=== PATIENT | female | born 1965 | race African-American/Black ===

== ENCOUNTER 2017-06-29 13:55 | Inpatient (IN) | payer SELFPAY ==
[~2017-06-29] VITALS: Ht 172.7 cm; Wt 94.0 kg
[~2017-06-29 13:55] MED LIST: LISI1TAB3 PO; NAPR-695 PO
[2017-06-29] MEDS ORDERED: ADENOSINE 6 MG/2 ML VIAL. IV ONE (14:02)
[2017-06-29] MEDS ORDERED: dilTIAZem IV PUSH 25 MG/5 ML VIAL ONE (14:02)
--- NOTE | 2017-06-29 14:07 | PHYS DOC ---
Past Medical History Past Medical History: Hypertension Past Surgical History: , Tubal ligation Alcohol Use: None Drug Use: None Adult General Chief Complaint Chief Complaint: RAPID HEART RATE HPI HPI Patient is a 51 year old female who presents with not feeling well. She states she felt a little short of breath with exertion earlier today no she came to the ER sitting in a chair she felt slightly short of breath. She denies any drug use she denies any fevers chills nausea or vomiting. She states that she started earlier today. She states that she's been diagnosed with high blood pressure and is on blood pressure medicines and took those this morning. Review of Systems Review of Systems Constitutional: Denies fever or chills [] Eyes: Denies change in visual acuity, redness, or eye pain [] HENT: Denies nasal congestion or sore throat [] Respiratory: Denies cough, slight shortness of breath [] Cardiovascular: No additional information not addressed in HPI [] GI: Denies abdominal pain, nausea, vomiting, bloody stools or diarrhea [] : Denies dysuria or hematuria [] Musculoskeletal: Denies back pain or joint pain [] Integument: Denies rash or skin lesions [] Neurologic: Denies headache, focal weakness or sensory changes [] Endocrine: Denies polyuria or polydipsia [] All other systems were reviewed and found to be within normal limits, except as documented in this note. Current Medications Current Medications Current Medications Medications (Trade) Dose Ordered Sig/Jesus Start Time Stop Time Status Last Admin Dose Admin Adenosine (Adenocard) 6 mg STK-MED ONCE 06/29/17 14:02 06/29/17 14:03 DC Diltiazem HCl (Cardizem) 10 mg 1X ONCE 06/29/17 14:15 06/29/17 14:16 DC Diltiazem HCl 125 mg/Dextrose 125 ml @ 10 mls/hr 1X ONCE 06/29/17 14:15 06/30/17 02:44 Metoprolol Tartrate (Lopressor Vial) 5 mg 1X ONCE 06/29/17 17:00 06/29/17 17:01 Sodium Chloride 1,000 ml @ 1,000 mls/hr 1X ONCE 06/29/17 15:30 06/29/17 16:29 DC 06/29/17 15:47 1,000 MLS/HR Allergies Allergies Allergies Coded Allergies Type Severity Reaction Last Updated Verified No Known Drug Allergies 04/21/16 No Physical Exam Physical Exam Constitutional: Well developed, well nourished, no acute distress, non-toxic appearance. [] HENT: Normocephalic, atraumatic, bilateral external ears normal, oropharynx moist, no oral exudates, nose normal. [] Eyes: PERRLA, EOMI, conjunctiva normal, no discharge. [] Neck: Normal range of motion, no tenderness, supple, no stridor. [] Cardiovascular:Heart rate regular rhythm with tachycardia, no murmur [] Lungs & Thorax: Bilateral breath sounds clear to auscultation [] Abdomen: Bowel sounds normal, soft, no tenderness, no masses, no pulsatile masses. [] Skin: Warm, dry, no erythema, no rash. [] Back: No tenderness, no CVA tenderness. [] Extremities: No tenderness, no cyanosis, no clubbing, ROM intact, no edema. [] Neurologic: Alert and oriented X 3, normal motor function, normal sensory function, no focal deficits noted. [] Psychologic: Affect normal, judgement normal, mood normal. [] Current Patient Data Vital Signs Vital Signs Date Time Temp Pulse Resp B/P (MAP) Pulse Ox O2 Delivery O2 Flow Rate FiO2 06/29/17 15:48 122 18 169/85 (113) 99 Room Air 06/29/17 14:21 2.0 06/29/17 13:56 98.1 98.1 Lab Values Laboratory Tests Test 06/29/17 14:15 06/29/17 14:25 White Blood Count 6.0 x10^3/uL (4.0-11.0) Red Blood Count 4.60 x10^6/uL (3.50-5.40) Hemoglobin 13.2 g/dL (12.0-15.5) Hematocrit 40.3 % (36.0-47.0) Mean Corpuscular Volume 88 fL (79-100) Mean Corpuscular Hemoglobin 29 pg (25-35) Mean Corpuscular Hemoglobin Concent 33 g/dL (31-37) Red Cell Distribution Width 14.0 % (11.5-14.5) Platelet Count 224 x10^3/uL (140-400) Neutrophils (%) (Auto) 65 % (31-73) Lymphocytes (%) (Auto) 29 % (24-48) Monocytes (%) (Auto) 6 % (0-9) Eosinophils (%) (Auto) 0 % (0-3) Basophils (%) (Auto) 0 % (0-3) Neutrophils # (Auto) 3.9 x10^3uL (1.8-7.7) Lymphocytes # (Auto) 1.7 x10^3/uL (1.0-4.8) Monocytes # (Auto) 0.4 x10^3/uL (0.0-1.1) Eosinophils # (Auto) 0.0 x10^3/uL (0.0-0.7) Basophils # (Auto) 0.0 x10^3/uL (0.0-0.2) Prothrombin Time 14.1 SEC (11.7-14.0) H Prothrombin Time INR 1.2 (0.8-1.1) H D-Dimer (Nandini) 0.39 ug/mlFEU (0.00-0.50) Sodium Level 138 mmol/L (136-145) Potassium Level 3.1 mmol/L (3.5-5.1) L Chloride Level 99 mmol/L (98-107) Carbon Dioxide Level 24 mmol/L (21-32) Anion Gap 15 (6-14) H Blood Urea Nitrogen 13 mg/dL (7-20) Creatinine 1.1 mg/dL (0.6-1.0) H Estimated GFR (Cockcroft-Gault) 63.6 Glucose Level 130 mg/dL (70-99) H Calcium Level 10.6 mg/dL (8.5-10.1) H Magnesium Level 1.5 mg/dL (1.8-2.4) L Total Bilirubin 0.6 mg/dL (0.2-1.0) Direct Bilirubin 0.1 mg/dL (0.0-0.2) Aspartate Amino Transferase (AST) 28 U/L (15-37) Alanine Aminotransferase (ALT) 28 U/L (14-59) Alkaline Phosphatase 118 U/L (46-116) H Creatine Kinase 250 U/L (26-192) H Creatine Kinase MB (Mass) 0.9 ng/mL (0.0-3.6) Creatine Kinase MB Relative Index 0.4 % (0-4) Troponin I Quantitative 0.022 ng/mL (0.000-0.055) HK-Aoq-F-Type Natriuretic Peptide 71 pg/mL (0-124) Total Protein 8.9 g/dL (6.4-8.2) H Albumin 4.2 g/dL (3.4-5.0) Lipase 124 U/L (73-393) Thyroid Stimulating Hormone (TSH) 0.595 uIU/mL (0.358-3.74) Urine Collection Type Unknown Urine Color Yellow Urine Clarity Clear Urine pH 6.5 Urine Specific [place] 1.015 Urine Protein Negative mg/dL (NEG-TRACE) Urine Glucose (UA) Negative mg/dL (NEG) Urine Ketones (Stick) Negative mg/dL (NEG) Urine Blood Negative (NEG) Urine Nitrite Negative (NEG) Urine Bilirubin Negative (NEG) Urine Urobilinogen Dipstick 1.0 mg/dL (0.2 mg/dL) Urine Leukocyte Esterase Trace (NEG) Urine RBC 0 /HPF (0-2) Urine WBC 1-4 /HPF (0-4) Urine Squamous Epithelial Cells Many /LPF Urine Bacteria Many /HPF (0-FEW) Urine Mucus Slight /LPF Urine Opiates Screen Neg (NEG) Urine Methadone Screen Neg (NEG) Urine Barbiturates Neg (NEG) Urine Phencyclidine Screen Neg (NEG) Urine Amphetamine/Methamphetamine Neg (NEG) Urine Benzodiazepines Screen Neg (NEG) Urine Cocaine Screen Neg (NEG) Urine Cannabinoids Screen Neg (NEG) Urine Ethyl Alcohol N eg (NEG) Laboratory Tests 06/29/17 14:15 Laboratory Tests 06/29/17 14:15 EKG EKG EKG shows sinus tachycardia with a rate of [address] elevations or T-wave inversions, normal axis, QTC 4 and 40 ms, as interpreted by me. Radiology/Procedures Radiology/Procedures [facility] [address] [place], [place] [id number] IMAGING REPORT Signed PATIENT: YULISSA MARIA ACCOUNT: [id number] : 1965 LOCATION: ER AGE: 51 SEX: F EXAM STATUS: REG ER ORD. PHYSICIAN: ANCA SANTIZO MD REASON: tachycardia PROCEDURE: PORTABLE CHEST 1V AP PORTABLE CHEST Clinical Indication: tachycardia. Shortness of air started this afternoon. Comparison: AP chest 02/26/2007. Findings: The cardiomediastinal silhouette is normal. Lungs are clear. There is no pneumothorax. No pleural effusion is appreciated. There is no acute bone abnormality. IMPRESSION: No acute cardiopulmonary process. DICTATED and SIGNED BY: JOSUE AGUILA MD DATE: 06/29/17 1444 CC: ANCA SANTIZO MD; NO PCP ~ Impressions: Tachycardia Hypertension Hypokalemia Course & Med Decision Making Course & Med Decision Making Pertinent Labs and Imaging studies reviewed. (See chart for details) She presented with heart rate 150s initially thought perhaps it was a flutter and diltiazem was ordered but was never given. Her heart rate decreased to the 120s. Her d-dimer is negative. She received IV fluids, 5 mg IV metoprolol be admitted to the hospitalist. Patient's in stable condition at this time. Patient denies any chest pain or shortness of breath. Dragon Disclaimer Dragon Disclaimer This electronic medical record was generated, in whole or in part, using a voice recognition dictation system. Departure Departure Referrals: NO PCP (PCP) ANCA SANTIZO MD Jun 29, 2017 14:07
[2017-06-29] MEDS ORDERED: dilTIAZem IV PUSH 25 MG/5 ML VIAL IVP ONE (14:15)
[2017-06-29 14:24] LABS: BASO % 0 % (0-3); EOS % 0 % (0-3); HEMATOCRIT 40.3 % (36.0-47.0); HEMOGLOBIN 13.2 g/dL (12.0-15.5); LYMPH # 1.7 x10^3/uL (1.0-4.8); LYMPH % 29 % (24-48); MEAN CORPUSCULAR HEMOGLOBIN 29 pg (25-35); MEAN CORPUSCULAR HGB CONC 33 g/dL (31-37); MEAN CORPUSCULAR VOLUME 88 fL (79-100); MONO % 6 % (0-9); NEUT % 65 % (31-73); PLATELET COUNT 224 x10^3/uL (140-400)
[2017-06-29 14:35] LABS: INR 1.2 (0.8-1.1); PROTHROMBIN TIME PATIENT 14.1 SEC (11.7-14.0)
[2017-06-29 14:44] LABS: BILIRUBIN,URINE NEGATIVE (NEG); GLUCOSE,URINE NEGATIVE (NEG); NITRITE,URINE NEGATIVE (NEG); PH,URINE 6.5; PROTEIN,URINE NEGATIVE (NEG-TRACE)
[2017-06-29 14:52] LABS: CKMB MASS 0.9 ng/mL (0.0-3.6)
[2017-06-29 14:53] LABS: BARBITURATES NEG (NEG); BENZODIAZEPINES NEG (NEG); CANNABINOIDS NEG (NEG); COCAINE NEG (NEG); METHADONE NEG (NEG); OPIATES NEG (NEG); PHENCYCLIDINE NEG (NEG)
--- NOTE | 2017-06-29 14:53 | RAD ---
AP PORTABLE CHEST Clinical Indication: tachycardia. Shortness of air started this afternoon. Comparison: AP chest 02/26/2007. Findings: The cardiomediastinal silhouette is normal. Lungs are clear. There is no pneumothorax. No pleural effusion is appreciated. There is no acute bone abnormality. IMPRESSION: No acute cardiopulmonary process.
[2017-06-29 14:55] LABS: BACTERIA,URINE MANY /HPF (0-FEW); RBC,URINE 0 /HPF (0-2); SQUAMOUS EPITHELIAL CELL,UR MANY /LPF
[2017-06-29 15:09] LABS: CALCIUM 10.6 mg/dL (8.5-10.1); CREATININE 1.1 mg/dL (0.6-1.0); GFR 63.6; POTASSIUM 3.1 mmol/L (3.5-5.1)
[2017-06-29 15:16] LABS: ALBUMIN 4.2 g/dL (3.4-5.0); DIRECT BILIRUBIN 0.1 mg/dL (0.0-0.2); MAGNESIUM 1.5 mg/dL (1.8-2.4); TOTAL BILIRUBIN 0.6 mg/dL (0.2-1.0); TOTAL PROTEIN 8.9 g/dL (6.4-8.2)
[2017-06-29] MEDS ORDERED: IV NORMAL SALINE 1000ML BAG 1,000 ML IV ONE (15:30)
[2017-06-29] MEDS ORDERED: METOPROLOL TARTRATE 5 MG/5 ML VIAL. IVP ONE (17:00)
[2017-06-29] MEDS ORDERED: POTASSIUM CHLORIDE 20 MEQ TABLET.ER. PO ONE (17:15)
[2017-06-29 19:09] VITALS: BP 157/94
[2017-06-29 19:13] VITALS: BP 157/94
[2017-06-29] MEDS ORDERED: MAGNESIUM SULFATE 4GM 100 ML IV ONE (19:30)
--- NOTE | 2017-06-29 21:31 | HP ---
ADMIT DATE: 06/29/2017 CHIEF COMPLAINT: Hypertensive urgency. HISTORY OF PRESENT ILLNESS: The patient is a 51-year-old woman who had been admitted about 10 days ago with hypertensive urgency. She had been discharged on lisinopril and hydrochlorothiazide. She had been taking her medications over the past week, but forgot today's pills. When she was carrying a heavy load of laundry today at home, she started not feeling well, had some shortness of breath and decided to come to the Emergency Room. She denies any fevers, chills, any cough, any chest pain or other symptoms. In the Emergency Room, she was found once again with hypertensive urgency and promptly admitted for further workup. She was also found significantly tachycardic, but has responded to beta blockers. PAST MEDICAL HISTORY: Hypertension. PAST SURGICAL HISTORY: She is status post and tubal ligation. FAMILY HISTORY: Hypertension. SOCIAL HISTORY: Does not smoke. No toxic habits. ALLERGIES: No known drug allergies. MEDICATIONS: MAR reconciled with home medications. REVIEW OF SYSTEMS: All symptoms as per HPI have now resolved. She states she feels really rundown and needs some time off. PHYSICAL EXAMINATION: VITAL SIGNS: Show currently a blood pressure of 157/94, heart rate of 88, respiratory rate at 18. She is afebrile. Of note, at time of presentation, blood pressure was 214/95 with a heart rate of 104. GENERAL: This is a well-nourished 51-year-old woman, alert and oriented, in no acute distress. HEENT: Shows no scleral icterus. NECK: Supple, without any JVD. LUNGS: Clear to auscultation bilaterally. HEART: Has regular rate and rhythm. ABDOMEN: Has positive bowel sounds, soft, nontender. EXTREMITIES: Show no edema. SKIN: Warm, soft and dry without any rash. LABORATORY DATA: CBC with a WBC of 6.0, hemoglobin 13.2, platelets of 224. Chemistries with a BUN and creatinine of 13 and 1.1, potassium at 3.1. LFTs within normal. Tox screen is negative. UA with 1-4 wbc's, many bacteria, many squamous. D-dimer is 0.39. IMAGING STUDIES: Chest x-ray without acute cardiopulmonary process. ASSESSMENT AND PLAN: The patient is a 51-year-old woman who presents with hypertensive urgency and associated symptoms. This now has been resolved with administration of the medications that she omitted. Beta kaylee IV was given in the Emergency Room as well with resolution of her tachycardia. Discussed with her that she cannot miss her blood pressure medications. Given her current blood pressure, I suspect that she actually will need an increase in her dose. She does have hypokalemia, which is probably related to the diuretic component of her medication. We will replete and monitor. She may have to be on permanent potassium as well. I am slightly suspicious that she may be here for secondary gain as well as she is desirous of having a few days off and would like a medical excuse from work for the next week. We will reevaluate in the morning. KATTY CRESPO MD DR: VAMSI/nts JOB#: [id number] / [id number] KELLY
[2017-06-29 22:44] VITALS: BP 144/79
[2017-06-30 03:30] VITALS: BP 124/73
--- NOTE | 2017-06-30 06:14 | EKG ---
[facility] [address] [place] [address] Test Date: 2017-06-29 Test Time: 14:00:58 Pat Name: YULISSA MARIA Department: Room: 250 1 Gender: F Funeral Director/Embalmer: VANESSA : 1965 Requested By: ANCA SANTIZO Order Number: [id number] Reading MD: Bari Corley MD Measurements Intervals [place] Rate: 150 P: TN: QRS: 36 QRSD: 82 T: 69 QT: 282 QTc: 448 Interpretive Statements SINUS TACHYCARDIA NON-SPECIFIC ST/T CHANGES Electronically Signed On 07-01-2017 12:29:32 [employer] by Bari Corley MD
[2017-06-30 07:35] VITALS: BP 123/79
[2017-06-30] MEDS ORDERED: hydroCHLOROthiazide 25 MG TABLET PO SCH (09:00)
[2017-06-30] MEDS ORDERED: LISINOPRIL 20 MG TABLET PO SCH (09:00)
[2017-06-30 09:07] VITALS: BP 123/79
[2017-06-30] MEDS ORDERED: LISI1TAB7 PO (10:36)
== END 2017-06-30 10:45 | disposition home or self-care (01) | DRG 641 ==
LOC: ER 13:55 → 2 SOUTH 14:19
PROVIDERS: ADMIT Internal Medicine Hematology & Oncology; ATTEND Internal Medicine Hematology & Oncology
DX: E87.6 Hypokalemia (principal); I10 Essential (primary) hypertension; I16.0 Hypertensive urgency; R00.0 Tachycardia, unspecified; T50.2X5A Adverse effect of carbonic-anhydrase inhibitors, benzothiadiazides and other diuretics, initial encounter; Z98.51 Tubal ligation status; Z82.49 Family history of ischemic heart disease and other diseases of the circulatory system
CPT/HCPCS: 36415; 71010; 80048; 80076; 80307; 81001; 82553; 83690; 83735; 83880; 84443; 84484; 85025; 85379; 85610; 87086; 93005; 96361; 96374; J3475; J3490; J7030; 99285-25; G0479

== ENCOUNTER 2017-07-31 19:21 | Emergency (ER) | payer SELFPAY ==
[~2017-07-31] VITALS: Ht 172.7 cm; Wt 93.9 kg
[~2017-07-31 19:21] MED LIST changes: +LISI1TAB7 PO
[2017-07-31 19:40] VITALS: BP 130/59
--- NOTE | 2017-07-31 19:42 | PHYS DOC ---
Past Medical History Past Medical History: Hypertension Past Surgical History: No Surgical History Alcohol Use: None Drug Use: None Adult General Chief Complaint Chief Complaint: FOOT INJURY PAIN HPI HPI Patient is a 51 year old female presents to the emergency department with a history of left foot pain. Patient states her 3 y/o grandson fell on her left foot. She states the pain is located at the 4th and 5th toe. She states she has increase pain with ambulation. She denies taking medication for pain states her pain is 8/10. Denies numbness or tingling to the toes. Review of Systems Review of Systems Constitutional: Denies fever or chills [] Eyes: Denies change in visual acuity, redness, or eye pain [] HENT: Denies nasal congestion or sore throat [] Respiratory: Denies cough or shortness of breath [] Cardiovascular: No additional information not addressed in HPI [] GI: Denies abdominal pain, nausea, vomiting, bloody stools or diarrhea [] : Denies dysuria or hematuria [] Musculoskeletal: Denies back pain. C/o pain to the left 4th and 5th toe Integument: Denies rash or skin lesions [] Neurologic: Denies headache, focal weakness or sensory changes [] Endocrine: Denies polyuria or polydipsia [] All other systems were reviewed and found to be within normal limits, except as documented in this note. Current Medications Current Medications Current Medications Medications (Trade) Dose Ordered Sig/Jesus Start Time Stop Time Status Last Admin Dose Admin Ibuprofen (Motrin) 800 mg 1X ONCE 07/31/17 19:45 07/31/17 19:46 DC 07/31/17 19:47 800 MG Allergies Allergies Allergies Coded Allergies Type Severity Reaction Last Updated Verified No Known Drug Allergies 04/21/16 No Physical Exam Physical Exam Constitutional: Well developed, well nourished, no acute distress, non-toxic appearance. [] HENT: Normocephalic, atraumatic, bilateral external ears normal, oropharynx moist, no oral exudates, nose normal. [] Eyes: PERRLA, EOMI, conjunctiva normal, no discharge. [] Neck: Normal range of motion, no tenderness, supple, no stridor. [] Cardiovascular:Heart rate regular rhythm Lungs & Thorax: no respiratory distress noted Skin: Warm, dry, no erythema, no rash. [] Extremities: Right 4th and 5th toe tenderness, no cyanosis, no clubbing, ROM intact, no edema. No discoloration, no deformity noted. Good sensation noted. Cap refill brisk < 2 seconds. Pedal pulses 2+ Posterior tibial pulse 2+ Neurologic: Alert and oriented X 3, normal motor function, normal sensory function, no focal deficits noted. [] Psychologic: Affect normal, judgement normal, mood normal. [] Current Patient Data Vital Signs Vital Signs Date Time Temp Pulse Resp B/P (MAP) Pulse Ox O2 Delivery O2 Flow Rate FiO2 07/31/17 19:40 98.3 97 20 97 Room Air 98.3 EKG EKG [] Radiology/Procedures Radiology/Procedures [] Course & Med Decision Making Course & Med Decision Making Pertinent Labs and Imaging studies reviewed. (See chart for details) X-rays were positive for fracture along the fourth and fifth toe of the left foot. Patient will be placed in a postop shoe with crutches. Recommendations to follow-up with orthopedic in the next week. Ice packs on 20 minutes off 20 minutes several times a day. Elevation as much as possible. Patient will be provided with hydrocodone for severe pain and discomfort. She was instructed this medication will cause drowsiness do not take any be alert and oriented. Patient agrees with discharge instructions, treatment regimens and follow-up recommendations. All questions and concerns was instructed the patients bedside. She'll be discharged home in stable condition. [] Dragon Disclaimer Dragon Disclaimer This electronic medical record was generated, in whole or in part, using a voice recognition dictation system. Departure Departure Impression: Primary Impression: Toe fracture, left Disposition: 01 HOME, SELF-CARE Condition: STABLE Referrals: NO PCP (PCP) AZUCENA BRITO II, MD Patient Instructions: Crutch Use, [id number], Toe Fracture Additional Instructions: Activity as tolerated Medication as prescribed Ibuprofen 800 mg every 8 hours with food this will help with pain and inflammation Reagan for severe pain, this medication will cause drowsiness do not take if you need to be alert and oriented Wear the post op shoe for comfort Use the crutches to help with ambulation Followup with orthopedic in 7-10 days Return to emergency department as needed for signs and symptoms that become worse. Scripts Hydrocodone/Apap 5-325 (NORCO 5-325 TABLET) 1 Each Tablet 1 TAB PO PRN Q6HRS Y for PAIN, #20 TAB 0 Refills Prov: DONATO BAUMAN APRN 07/31/17 Problem Qualifiers Primary Impression: Toe fracture, left Encounter type: initial encounter Toe: lesser toe Fracture type: closed Phalanx: unspecified phalanx Fracture alignment: nondisplaced Qualified Codes: S92.505A - Nondisplaced unspecified fracture of left lesser toe(s), initial encounter for closed fracture DONATO BAUMAN APRN Jul 31, 2017 19:42
[2017-07-31] MEDS ORDERED: IBUPROFEN 800 MG TABLET. PO ONE (19:45)
[2017-07-31] MEDS ORDERED: HYDR-971 PO (20:06)
--- NOTE | 2017-08-01 07:14 | RAD ---
Indication: Injury with pain in the third and fourth digits. Time of exam 1952 hours. 3 views of the left foot were obtained. There are fractures noted at the base of the proximal phalanges of the fourth and fifth toes. Metatarsals are intact. Midfoot and hindfoot are unremarkable. No other abnormalities are seen. Impression: Fractures involving the proximal phalanges of the fourth and fifth toes.
== END 2017-07-31 20:34 | disposition home or self-care (01) ==
LOC: ER 19:21
DX: S92.512A Displaced fracture of proximal phalanx of left lesser toe(s), initial encounter for closed fracture (principal); I10 Essential (primary) hypertension; W51.XXXA Accidental striking against or bumped into by another person, initial encounter; Y93.89 Activity, other specified; Y92.89 Other specified places as the place of occurrence of the external cause; Y99.8 Other external cause status
CPT/HCPCS: 73630; 99284